=== PATIENT | female | born 1945 | race Caucasian/White ===

== ENCOUNTER → 2018-01-07 08:31 | Outpatient (CLI) | payer MEDICARE, SELFPAY | PROVIDERS: PCP Internal Medicine; Visit Provider Internal Medicine | DX: E78.00 Pure hypercholesterolemia, unspecified (principal); E03.9 Hypothyroidism, unspecified; I10 Essential (primary) hypertension ==

== ENCOUNTER → 2018-01-10 08:17 | Outpatient (CLI) | payer MEDICARE, SELFPAY ==
[2018-01-10 09:29] LABS: Alanine Aminotransferase 28 IU/L (9-52); Albumin 4.6 g/dL (3.5-5.0); Albumin Globulin Ratio 1.5 (1.0-2.8); Alkaline Phosphatase 78 U/L (38-126); Aspartate Aminotransferase 33 IU/L (14-36); Bilirubin Total 0.8 mg/dL (0.2-1.3); Blood Urea Nitrogen 9 mg/dL (7-17); Calcium 9.3 mg/dL (8.4-10.2); Carbon Dioxide 25 mmol/L (22-32); Chloride 106 mmol/L (98-107); Cholesterol 165 mg/dL (140-199); Estimated Glomerular Filt Rate > 60.0 mL/min (>60); Glucose 108 mg/dL (80-110); HDL Cholesterol 59 mg/dL (40-60); HEMOLYSIS 32 (0-50); LDL Cholesterol Calculated 77 mg/dL (<100); Potassium 4.3 mmol/L (3.4-5.1); Sodium 143 mmol/L (137-145); Total Protein 7.6 g/dL (6.3-8.2); Triglycerides 143 mg/dL (35-150)
[2018-01-10 09:53] LABS: Free T3, Triiodothyronine Free 3.83 pg/mL (2.77-5.27); Free T4, Direct Thyroxine 1.58 ng/dL (0.78-2.19)
[2018-01-10 10:07] LABS: Thyroid Stimulating Hormone 0.23 uIU/mL (0.47-4.68)
== END ==
PROVIDERS: PCP Internal Medicine; Visit Provider Internal Medicine
DX: E78.00 Pure hypercholesterolemia, unspecified (principal); E03.9 Hypothyroidism, unspecified
CPT/HCPCS: 36415; 80053; 80061; 84439; 84443; 84481

== ENCOUNTER → 2018-01-14 08:46 | Outpatient (CLI) | payer MEDICARE, SELFPAY ==
--- NOTE | 2018-01-14 | DI.MG.S_ITS ---
BILATERAL DIGITAL SCREENING MAMMOGRAM 3D/2D WITH CAD POST LUMPECTOMY: 01/14/2018 CLINICAL: Routine screening. Personal history of right breast cancer. Family history of breast cancer. Comparison is made to exams dated: 12/17/2016 mammogram, 12/10/2015 mammogram, and 12/02/2014 mammogram - [facility]. The tissue of both breasts is heterogeneously dense. This may lower the sensitivity of mammography. Current study was also evaluated with a Computer Aided Detection (CAD) system. There are post operative findings in the right breast. No significant masses, calcifications, or other findings are seen in either breast. There has been no significant interval change. IMPRESSION: NEGATIVE There is no mammographic evidence of malignancy. A 1 year screening mammogram is recommended. This exam was interpreted at Station ID: [id number]. NOTE: For mammograms, a report in lay terms will be sent to the patient. Approximately 15% of breast malignancies will not be visualized mammographically. In the management of a palpable breast mass, a negative mammogram must not discourage biopsy of a clinically suspicious lesion. Electronically Signed By: Simi streeter/daisha:01/16/2018 09:55:17 letter sent: Normal Exam ACR BI-RADS Category 1: Negative [id number]
== END ==
PROVIDERS: Family Provider Internal Medicine; PCP Internal Medicine; Visit Provider Internal Medicine
DX: Z12.31 Encounter for screening mammogram for malignant neoplasm of breast (principal); Z85.3 Personal history of malignant neoplasm of breast; Z80.3 Family history of malignant neoplasm of breast
CPT/HCPCS: 77063; 77067